=== PATIENT | male | born 1990 | race African-American/Black ===

== ENCOUNTER 2020-08-26 13:55 | Outpatient (REF) | payer BC, SELFPAY ==
[2020-08-26 16:36] LABS: Syphilis Screen Nonreactive (Nonreactive)
[2020-08-27 09:06] LABS: HBc Num1 0.02 S/CO (0.00-0.79); HIV AB/AG Nonreactive (Nonreactive); HIV Num 1 0.08 S/CO (0.00-0.99); Hepatitis B Core Antibody Nonreactive (Nonreactive); ~HepC Num1 0.08 S/CO (0.00-0.79); ~Hepatitis C Antibody Nonreactive (Nonreactive)
[2020-08-27 09:14] LABS: Hepatitis B Surface Antigen Negative (Negative); ~Hepatitis B Surface Antibody REACTIVE (Nonreactive)
[2020-08-28 05:41] LABS: ~Hepatitis A Antibody IgM Nonreactive (Nonreactive)
[2020-08-28 07:29] LABS: HBS Num1 376.59 mIU/mL (0-7.99)
[2020-08-28 11:31] LABS: C. trachomatis RNA TMA NOT DETECTED (NOT DETECTED); N. gonorrhoeae RNA TMA NOT DETECTED (NOT DETECTED)
== END 2020-08-26 13:56 | disposition home or self-care (01) ==
LOC: HO.HMGCLDS 13:55
PROVIDERS: Visit Provider Nurse Practitioner Family
DX: Z20.2 Contact with and (suspected) exposure to infections with a predominantly sexual mode of transmission (principal)
CPT/HCPCS: 36415; 86704; 86706; 86709; 86780; 86803; 87340; 87389; 87491; 87591

== ENCOUNTER 2021-11-03 18:11 | Outpatient (REF) | payer OTHER, SELFPAY ==
[2021-11-04 05:26] LABS: CT PCR NOT DETECTED (Not Detect.); NG PCR NOT DETECTED (Not Detect.)
== END 2021-11-03 18:12 | disposition home or self-care (01) ==
LOC: HO.LNP 18:11
PROVIDERS: Nurse Practitioner Family; Visit Provider Internal Medicine
DX: Z20.2 Contact with and (suspected) exposure to infections with a predominantly sexual mode of transmission (principal)
CPT/HCPCS: 87491; 87591

== ENCOUNTER → 2021-11-18 13:22 | Outpatient (BNVA) | payer OTHER, SELFPAY | PROVIDERS: Visit Provider Physician Assistant Medical | DX: S46.812A Strain of other muscles, fascia and tendons at shoulder and upper arm level, left arm, initial encounter (principal); W22.09XA Striking against other stationary object, initial encounter | CPT/HCPCS: 73030; 99203 ==

== ENCOUNTER → 2021-11-20 09:39 | Outpatient (BNVA) | payer OTHER, SELFPAY | PROVIDERS: Visit Provider Internal Medicine | DX: M79.622 Pain in left upper arm (principal) | CPT/HCPCS: 99213 ==

== ENCOUNTER → 2021-11-27 10:11 | Outpatient (BNVA) | payer OTHER, SELFPAY | PROVIDERS: Visit Provider Internal Medicine | DX: M79.602 Pain in left arm (principal) | CPT/HCPCS: 99213 ==

== ENCOUNTER 2021-12-01 12:10 | Outpatient (REF) | payer OTHER, SELFPAY ==
--- NOTE | ~2021-12-01 | MR_ITS ---
EXAMINATION: MRI OF THE LEFT HUMERUS WITHOUT CONTRAST CLINICAL INFORMATION: Trauma with pain of the left humerus. COMPARISON: Radiographs dated 11/18/2021. TECHNIQUE: Multiplanar MR imaging was obtained to the left proximal humerus on a 1.5 Bibiana magnet without intravenous contrast. FINDINGS: An eccentric, expansile proximal humeral lesion measures 2.1 x 1.9 x 10.5 cm (AP by transverse by longitudinal) and scallops the lateral articular cortex focally. It is relatively homogeneous on T1-weighted images with heterogeneously increased intermediate signal intensity on T2 fat-saturated sequences. Surrounding marrow signal is normal. There is a thin rim to the interface of this lesion at the medullary space. Appearance is non-aggressive. No superimposed fractures are identified on these images. Specifically, no periosteal reaction or surrounding marrow edema. No discrete cortical breaks are identified. No extraosseous soft tissue lesions. There is a separate lesion in the glenoid measuring 2.5 x 1.3 x 2.9 cm with mild expansion of the surrounding bone, a thick rim, and similar signal intensity internally on T2 and T1-weighted images. No surrounding periosteal reaction or other findings to indicate an acute fracture. Additional osseous lesions are identified on the obtained images. No acute osseous findings. Acromioclavicular and glenohumeral joints appear normal. Musculature is normal in signal intensity without appreciable fatty replacement, atrophy, or edema signal. Rotator cuff is grossly intact on these images. Labrum is not well assessed. No adenopathy. 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 A chondroid lesion is less likely based both on the radiographic and MRI appearance. Consider long interval radiographic follow-up (1 mm) to verify stability. No superimposed fractures are identified.
== END 2021-12-01 12:11 | disposition home or self-care (01) ==
LOC: HO.MRI 12:10
PROVIDERS: Visit Provider Internal Medicine
DX: M79.622 Pain in left upper arm (principal)
CPT/HCPCS: 73218

== ENCOUNTER → 2021-12-05 14:23 | Outpatient (BNVA) | payer OTHER, SELFPAY | PROVIDERS: Visit Provider Internal Medicine | DX: S40.022D Contusion of left upper arm, subsequent encounter (principal); X58.XXXD Exposure to other specified factors, subsequent encounter | CPT/HCPCS: 99213 ==

== ENCOUNTER 2022-02-24 12:05 | Outpatient (REF) | payer OTHER, SELFPAY ==
[2022-02-24 13:46] LABS: MANUAL DIFF FLAG NO
[2022-02-24 13:56] LABS: Basophils Percent Auto 0.5 % (0-2); Eosinophils Absolute Auto 0.1 X10*3/uL (0.0-0.4); Eosinophils Percent Auto 0.9 % (0-4); Hematocrit 39.3 % (42.0-52.0); Hemoglobin 13.3 g/dl (14.0-18.0); Imm Gran Abs Auto 0.06 X10*3/uL (0.00-0.03); Imm Gran Pct Auto 0.9 % (0.0-0.4); Lymphocytes Absolute Auto 1.7 X10*3/uL (1.2-4.9); Lymphocytes Percent Auto 26.6 % (20-40); Mean Corpuscular HGB Conc 33.8 g/dl (31.0-36.0); Mean Corpuscular Hemoglobin 29.8 pg (27.0-33.0); Mean Corpuscular Volume 88.1 fL (80.0-98.0); Mean Platelet Volume 10.8 fL (9.4-12.4); Monocytes Absolute Auto 0.7 X10*3/uL (0.1-1.2); Monocytes Percent Auto 10.3 % (2-11); Neutrophils Percent Auto 60.8 % (45-73); Platelet Count 211 X10*3/uL (160-400); Red Blood Count 4.46 X10*6/uL (4.60-5.80); Red Cell Distribution Width 12.7 % (11.0-16.0); White Blood Count 6.5 X10*3/uL (4.8-10.8)
[2022-02-24 14:22] LABS: Alanine Aminotransferase 18 U/L (0-40); Albumin Level 4.5 g/dL (3.5-5.0); Alkaline Phosphatase 60 U/L (39-117); Aspartate Amino Transferase 16 U/L (5-37); Bilirubin Direct < 0.2 mg/dL (0.0-0.5); Bilirubin Total 0.3 mg/dL (0.0-1.0); Total Protein 7.2 g/dL (6.5-8.0)
== END 2022-02-24 12:06 | disposition home or self-care (01) ==
LOC: HO.HMGCLDS 12:05
PROVIDERS: Visit Provider Nurse Practitioner Family
DX: R10.32 Left lower quadrant pain (principal)
CPT/HCPCS: 36415; 80076; 85025

== ENCOUNTER → 2022-08-13 13:48 | Outpatient (BNVA) | payer OTHER, SELFPAY | DX: Z13.89 Encounter for screening for other disorder (principal) ==